=== PATIENT | female | born 1950 | race Two or more races ===

== ENCOUNTER 2016-09-30 22:15 | Emergency (ER) | payer MEDICARE, MEDICAID ==
[2016-09-30 21:19] LABS: BASO % 0.8 % (0-2); BASO ABSOLUTE COUNT 0.1 tho/cmm (0.0-0.2); EOS % 9.6 % (0-7); EOSINOPHIL ABSOLUTE COUNT 1.1 tho/cmm (0.0-0.7); HCT-HEMATOCRIT 28.7 % (34.0-49.0); IMMATURE GRANULOCYTES ABSOLUTE 0.03 tho/cmm (0-0.03); IMMATURE GRANULOCYTES PERCENT 0.3 % (0-0.3); LYMPH % 16.5 % (20-45); LYMPH ABSOLUTE COUNT 1.8 tho/cmm (0.8-4.5); MCH (MEAN CORPUSCULAR HGB) 29.8 pg (28.0-32.0); MCHC MEAN CORPUSCULAR HGB CONC 31.4 % (32.0-36.0); MEAN PLATELET VOLUME 9.6 cmc (9.4-12.4); MONO % 7.6 % (0-12); MONOCYTE ABSOLUTE COUNT 0.9 tho/cmm (0.0-1.2); NEUTROPHIL ABSOLUTE COUNT 7.3 tho/cmm (1.6-8.0); NEUTROPHIL-AUTOMATED 7.3 tho/cmm (1.6-8.0); NEUTROPHILS % 65.2 % (40-80); PLATELET COUNT 264 tho/cmm (150-450); RED BLOOD COUNT 3.02 mil/cmm (4.00-5.20); RED CELL DISTRIBUTION WIDTH 15.7 % (12.4-16.4); WHITE BLOOD COUNT 11.1 tho/cmm (4.0-10.0)
[2016-09-30 21:22] LABS: ANION GAP 13 mmol/L (0-20); BLOOD UREA NITROGEN 48 mg/dl (6-24); CALCIUM 8.3 mg/dl (8.5-10.5); CARBON DIOXIDE-VENOUS 30 mmol/L (22-32); CHLORIDE 100 mmol/l (96-110); GLUCOSE 118 mg/dL (70-110); POTASSIUM 4.8 mmol/L (3.7-5.1); SODIUM 138 mmol/L (135-145); eGFR VALUE FOR BLACK 8 mL/Min
[~2016-09-30 22:15] MED LIST: ASPIRIN EC81 MG PO; ATIVAN0.5 M1 PO; BALANCE B-1001 EAC1 PO; BRILINTA90 M1 PO; CALCIUM ACETAT667 M3 PO; CELEXA20 M2 PO; COREG25 M1 PO; COZAAR50 M1 PO; LASIX40 M1 PO; LEVEMIR FL100 UNIT/2 SC; LYRICA50 MG/CAP PO; MIRALAX17 G2 PO; NEURONTIN600 M1 PO; NORVASC5 M2 PO; NOVOLOG100 UNITS/ SC; OMEPRAZOLE20 M3 PO; PRAMIPEXOLE D0.25 M1 PO; PRAVASTATIN SOD20 M1 PO; TRAZODONE HCL50 M1 PO; TYLENOL EXTRA500 M1 PO; ULTRAM50 M1 PO; [UNRECOGNIZED DRUG - OTHER] PO
== END 2016-09-30 22:39 ==
LOC: EDMED 22:15
PROVIDERS: Emergency Medicine
DX: S09.90XA Unspecified injury of head, initial encounter (principal); W05.0XXA Fall from non-moving wheelchair, initial encounter; E11.22 Type 2 diabetes mellitus with diabetic chronic kidney disease; N18.9 Chronic kidney disease, unspecified; I73.9 Peripheral vascular disease, unspecified; Z99.2 Dependence on renal dialysis; Z79.02 Long term (current) use of antithrombotics/antiplatelets; Z79.4 Long term (current) use of insulin; Z79.899 Other long term (current) drug therapy

== ENCOUNTER 2016-10-01 19:45 | Inpatient (IN) | payer MEDICARE, MEDICAID ==
[2016-10-01 20:55] LABS: BASO % 0.3 % (0-2); EOS % 7.6 % (0-7); EOSINOPHIL ABSOLUTE COUNT 1.1 tho/cmm (0.0-0.7); HCT-HEMATOCRIT 28.3 % (34.0-49.0); HGB-HEMOGLOBIN 8.9 gm/dl (12.0-15.5); IMMATURE GRANULOCYTES ABSOLUTE 0.03 tho/cmm (0-0.03); IMMATURE GRANULOCYTES PERCENT 0.2 % (0-0.3); LYMPH % 12.6 % (20-45); LYMPH ABSOLUTE COUNT 1.7 tho/cmm (0.8-4.5); MCH (MEAN CORPUSCULAR HGB) 29.8 pg (28.0-32.0); MCHC MEAN CORPUSCULAR HGB CONC 31.4 % (32.0-36.0); MCV (MEAN CELL VOLUME) 94.6 fl (82.0-96.0); MEAN PLATELET VOLUME 9.9 cmc (9.4-12.4); MONO % 5.5 % (0-12); MONOCYTE ABSOLUTE COUNT 0.8 tho/cmm (0.0-1.2); NEUTROPHIL ABSOLUTE COUNT 10.2 tho/cmm (1.6-8.0); NEUTROPHIL-AUTOMATED 10.2 tho/cmm (1.6-8.0); NEUTROPHILS % 73.8 % (40-80); PLATELET COUNT 289 tho/cmm (150-450); RED BLOOD COUNT 2.99 mil/cmm (4.00-5.20); RED CELL DISTRIBUTION WIDTH 15.5 % (12.4-16.4); WHITE BLOOD COUNT 13.8 tho/cmm (4.0-10.0)
[2016-10-01 21:05] LABS: ALB/GLOB RATIO 0.5 (0.8-2.0); ALBUMIN 3.2 g/dl (3.5-5.0); ALKALINE PHOSPHATASE 123 U/L (33-138); ALT/SGPT 10 U/L (12-78); ANION GAP 15 mmol/L (0-20); AST/SGOT 13 U/L (10-40); BILIRUBIN,TOTAL 0.4 mg/dl (0-1.5); BLOOD UREA NITROGEN 59 mg/dl (6-24); CALCIUM 8.6 mg/dl (8.5-10.5); CARBON DIOXIDE-VENOUS 28 mmol/L (22-32); CHLORIDE 99 mmol/l (96-110); CREATININE 6.91 mg/dl (0.50-1.10); GLUCOSE 119 mg/dL (70-110); SODIUM 135 mmol/L (135-145); eGFR VALUE FOR BLACK 7 mL/Min
[2016-10-01 21:11] LABS: POTASSIUM 6.7 mmol/L (3.7-5.1)
[2016-10-01 21:27] LABS: PROCALCITONIN 0.26 ng/ml (0.05-0.09)
[2016-10-01 21:45] LABS: URINE BILIRUBIN NEGATIVE (NEG); URINE BLOOD LARGE (NEG); URINE GLUCOSE (UA) NEGATIVE (NEG); URINE KETONE NEGATIVE (NEG); URINE LEUKOCYTE ESTERASE POSITIVE (NEG); URINE NITRITE NEGATIVE (NEG); URINE PROTEIN MODERATE (NEG)
[2016-10-01 21:54] LABS: URINE APPEARANCE CLOUDY; URINE COLOR YELLOW
[2016-10-01 22:01] LABS: URINE AMORPHOUS 1+; URINE BACTERIA 1+; URINE RBC 0 /[HPF] (0-5); URINE WBC FULL FIELD /[HPF] (0-5)
[2016-10-02 09:11] LABS: BASO % 0.4 % (0-2); EOS % 6.9 % (0-7); EOSINOPHIL ABSOLUTE COUNT 0.7 tho/cmm (0.0-0.7); HCT-HEMATOCRIT 26.7 % (34.0-49.0); HGB-HEMOGLOBIN 8.4 gm/dl (12.0-15.5); IMMATURE GRANULOCYTES ABSOLUTE 0.01 tho/cmm (0-0.03); IMMATURE GRANULOCYTES PERCENT 0.1 % (0-0.3); LYMPH % 12.2 % (20-45); LYMPH ABSOLUTE COUNT 1.3 tho/cmm (0.8-4.5); MCH (MEAN CORPUSCULAR HGB) 29.5 pg (28.0-32.0); MCHC MEAN CORPUSCULAR HGB CONC 31.5 % (32.0-36.0); MCV (MEAN CELL VOLUME) 93.7 fl (82.0-96.0); MEAN PLATELET VOLUME 9.9 cmc (9.4-12.4); MONO % 7.5 % (0-12); MONOCYTE ABSOLUTE COUNT 0.8 tho/cmm (0.0-1.2); NEUTROPHIL ABSOLUTE COUNT 7.8 tho/cmm (1.6-8.0); NEUTROPHIL-AUTOMATED 7.8 tho/cmm (1.6-8.0); NEUTROPHILS % 72.9 % (40-80); PLATELET COUNT 271 tho/cmm (150-450); RED BLOOD COUNT 2.85 mil/cmm (4.00-5.20); RED CELL DISTRIBUTION WIDTH 15.3 % (12.4-16.4); WHITE BLOOD COUNT 10.8 tho/cmm (4.0-10.0)
[2016-10-02 09:34] LABS: ALB/GLOB RATIO 0.5 (0.8-2.0); ALBUMIN 2.8 g/dl (3.5-5.0); ALKALINE PHOSPHATASE 112 U/L (33-138); ALT/SGPT 12 U/L (12-78); AST/SGOT 18 U/L (10-40); BILIRUBIN,TOTAL 0.5 mg/dl (0-1.5); BLOOD UREA NITROGEN 35 mg/dl (6-24); CALCIUM 8.3 mg/dl (8.5-10.5); CARBON DIOXIDE-VENOUS 28 mmol/L (22-32); CHLORIDE 99 mmol/l (96-110); GLUCOSE 96 mg/dL (70-110); MAGNESIUM 2.1 mg/dl (1.3-2.6); PHOSPHOROUS 3.1 mg/dl (2.5-4.9); SODIUM 138 mmol/L (135-145); eGFR VALUE FOR BLACK 11 mL/Min
[2016-10-02 09:36] LABS: ANION GAP 16 mmol/L (0-20); CREATININE 4.66 mg/dl (0.50-1.10); POTASSIUM 4.5 mmol/L (3.7-5.1)
[2016-10-03 06:10] LABS: ANION GAP 12 mmol/L (0-20); BLOOD UREA NITROGEN 20 mg/dl (6-24); CALCIUM 8.9 mg/dl (8.5-10.5); CARBON DIOXIDE-VENOUS 31 mmol/L (22-32); CHLORIDE 97 mmol/l (96-110); CREATININE 3.48 mg/dl (0.50-1.10); GLUCOSE 86 mg/dL (70-110); MAGNESIUM 1.9 mg/dl (1.3-2.6); PHOSPHOROUS 3.1 mg/dl (2.5-4.9); POTASSIUM 3.4 mmol/L (3.7-5.1); SODIUM 137 mmol/L (135-145); eGFR VALUE FOR BLACK 15 mL/Min
[2016-10-04 07:28] LABS: ANION GAP 17 mmol/L (0-20); BLOOD UREA NITROGEN 33 mg/dl (6-24); CALCIUM 8.7 mg/dl (8.5-10.5); CARBON DIOXIDE-VENOUS 27 mmol/L (22-32); CHLORIDE 102 mmol/l (96-110); CREATININE 5.37 mg/dl (0.50-1.10); POTASSIUM 5.9 mmol/L (3.7-5.1); SODIUM 140 mmol/L (135-145); eGFR VALUE FOR BLACK 9 mL/Min
[2016-10-04 07:31] LABS: GLUCOSE 43 mg/dL (70-110)
[2016-10-05 06:13] LABS: BASO % 0.6 % (0-2); BASO ABSOLUTE COUNT 0.1 tho/cmm (0.0-0.2); EOS % 8.4 % (0-7); EOSINOPHIL ABSOLUTE COUNT 0.8 tho/cmm (0.0-0.7); HCT-HEMATOCRIT 26.4 % (34.0-49.0); HGB-HEMOGLOBIN 8.4 gm/dl (12.0-15.5); IMMATURE GRANULOCYTES ABSOLUTE 0.02 tho/cmm (0-0.03); IMMATURE GRANULOCYTES PERCENT 0.2 % (0-0.3); LYMPH % 22.1 % (20-45); LYMPH ABSOLUTE COUNT 2.1 tho/cmm (0.8-4.5); MCH (MEAN CORPUSCULAR HGB) 29.4 pg (28.0-32.0); MCHC MEAN CORPUSCULAR HGB CONC 31.8 % (32.0-36.0); MCV (MEAN CELL VOLUME) 92.3 fl (82.0-96.0); MEAN PLATELET VOLUME 9.8 cmc (9.4-12.4); MONO % 9.5 % (0-12); MONOCYTE ABSOLUTE COUNT 0.9 tho/cmm (0.0-1.2); NEUTROPHIL ABSOLUTE COUNT 5.6 tho/cmm (1.6-8.0); NEUTROPHIL-AUTOMATED 5.6 tho/cmm (1.6-8.0); NEUTROPHILS % 59.2 % (40-80); PLATELET COUNT 267 tho/cmm (150-450); RED BLOOD COUNT 2.86 mil/cmm (4.00-5.20); RED CELL DISTRIBUTION WIDTH 14.7 % (12.4-16.4); WHITE BLOOD COUNT 9.4 tho/cmm (4.0-10.0)
[2016-10-05 06:22] LABS: ALBUMIN 2.7 g/dl (3.5-5.0); BLOOD UREA NITROGEN 10 mg/dl (6-24); CALCIUM 9.1 mg/dl (8.5-10.5); CARBON DIOXIDE-VENOUS 26 mmol/L (22-32); CHLORIDE 101 mmol/l (96-110); PHOSPHOROUS 1.6 mg/dl (2.5-4.9); SODIUM 137 mmol/L (135-145); eGFR VALUE FOR BLACK 16 mL/Min
[2016-10-05 06:28] LABS: ANION GAP 13 mmol/L (0-20); CREATININE 3.27 mg/dl (0.50-1.10); GLUCOSE 86 mg/dL (70-110); POTASSIUM 2.8 mmol/L (3.7-5.1)
[2016-10-06 07:15] LABS: ALBUMIN 2.8 g/dl (3.5-5.0); ANION GAP 13 mmol/L (0-20); BLOOD UREA NITROGEN 18 mg/dl (6-24); CALCIUM 8.6 mg/dl (8.5-10.5); CARBON DIOXIDE-VENOUS 25 mmol/L (22-32); CHLORIDE 106 mmol/l (96-110); POTASSIUM 3.6 mmol/L (3.7-5.1); SODIUM 140 mmol/L (135-145)
[2016-10-06 07:16] LABS: CREATININE 4.81 mg/dl (0.50-1.10); GLUCOSE 55 mg/dL (70-110); eGFR VALUE FOR BLACK 10 mL/Min
[2016-10-06 07:24] LABS: IRON 49 ug/dl (37-170); IRON BINDING CAPACITY 144 ug/dl (250-450)
[2016-10-06 07:44] LABS: FERRITIN 2666 ng/ml (8-250)
[2016-10-06] MEDS ORDERED: VIBRAMYCIN100 M1 PO (16:29)
[2016-10-06] MEDS ORDERED: VANCOCIN HCL125 MG PO (16:36)
[2016-10-06] MEDS ORDERED: VANCOMYCIN HCL125 M1 PO (16:38)
[2016-10-06] MEDS ORDERED: LYRICA50 MG/CAP PO (16:50)
== END 2016-10-06 17:32 | DRG 193 ==
LOC: EDMED 19:45 → EMR2 10-02 00:43 → PCUA 10-02 01:46
PROVIDERS: Emergency Medicine; Family Medicine; Internal Medicine; Internal Medicine Nephrology; ADMIT Hospitalist
PROC: 05HY33Z Insertion of Infusion Device into Upper Vein, Percutaneous Approach (ICD-10-PCS; principal; 2016-10-02)
PROC: 5A1D60Z (ICD-10-PCS; principal; 2016-10-02)
DX: J18.9 Pneumonia, unspecified organism (principal); N18.6 End stage renal disease; G92 Toxic encephalopathy; I96 Gangrene, not elsewhere classified; A04.7 Enterocolitis due to Clostridium difficile; N25.81 Secondary hyperparathyroidism of renal origin; E11.22 Type 2 diabetes mellitus with diabetic chronic kidney disease; I12.0 Hypertensive chronic kidney disease with stage 5 chronic kidney disease or end stage renal disease; N39.0 Urinary tract infection, site not specified; Z99.2 Dependence on renal dialysis; D63.1 Anemia in chronic kidney disease; F32.9 Major depressive disorder, single episode, unspecified; I25.10 Atherosclerotic heart disease of native coronary artery without angina pectoris; I25.2 Old myocardial infarction; T42.6X5A Adverse effect of other antiepileptic and sedative-hypnotic drugs, initial encounter; Z91.19 Patient's noncompliance with other medical treatment and regimen; E11.649 Type 2 diabetes mellitus with hypoglycemia without coma
CPT/HCPCS: C1751; J0885; J1644; J1815; J2543; J3370; J7050; P9612

== ENCOUNTER 2016-10-10 08:12 | Day surgery (SDC) | payer MEDICARE, MEDICAID ==
[~2016-10-10 08:12] MED LIST changes: +VANCOCIN HCL125 MG PO; +VANCOMYCIN HCL125 M1 PO; +VIBRAMYCIN100 M1 PO
[2016-10-10 09:37] LABS: BASO % 0.8 % (0-2); BASO ABSOLUTE COUNT 0.1 tho/cmm (0.0-0.2); EOS % 7.2 % (0-7); EOSINOPHIL ABSOLUTE COUNT 0.8 tho/cmm (0.0-0.7); HCT-HEMATOCRIT 33.1 % (34.0-49.0); HGB-HEMOGLOBIN 10.3 gm/dl (12.0-15.5); IMMATURE GRANULOCYTES ABSOLUTE 0.03 tho/cmm (0-0.03); IMMATURE GRANULOCYTES PERCENT 0.3 % (0-0.3); LYMPH % 14.1 % (20-45); LYMPH ABSOLUTE COUNT 1.5 tho/cmm (0.8-4.5); MCH (MEAN CORPUSCULAR HGB) 29.9 pg (28.0-32.0); MCHC MEAN CORPUSCULAR HGB CONC 31.1 % (32.0-36.0); MCV (MEAN CELL VOLUME) 95.9 fl (82.0-96.0); MEAN PLATELET VOLUME 10.2 cmc (9.4-12.4); MONO % 10.9 % (0-12); MONOCYTE ABSOLUTE COUNT 1.1 tho/cmm (0.0-1.2); NEUTROPHILS % 66.7 % (40-80); PLATELET COUNT 250 tho/cmm (150-450); RED BLOOD COUNT 3.45 mil/cmm (4.00-5.20); RED CELL DISTRIBUTION WIDTH 16.8 % (12.4-16.4); WHITE BLOOD COUNT 10.5 tho/cmm (4.0-10.0)
[2016-10-10 09:42] LABS: INR 1.1 INR (0.9-1.1); PROTHROMBIN TIME 12.8 SECONDS (9.0-13.6)
[2016-10-10 09:49] LABS: ANION GAP 12 mmol/L (0-20); BLOOD UREA NITROGEN 21 mg/dl (6-24); CARBON DIOXIDE-VENOUS 31 mmol/L (22-32); CHLORIDE 100 mmol/l (96-110); CREATININE 3.93 mg/dl (0.50-1.10); GLUCOSE 74 mg/dL (70-110); POTASSIUM 4.1 mmol/L (3.7-5.1); SODIUM 139 mmol/L (135-145); eGFR VALUE FOR BLACK 13 mL/Min
== END 2016-10-10 14:40 ==
LOC: RADSP 08:12 → SHSC 08:13
PROVIDERS: Radiology Diagnostic Radiology
PROC: B51W1ZZ Fluoroscopy of Dialysis Shunt/Fistula using Low Osmolar Contrast (ICD-10-PCS; principal; 2016-10-10)
PROC: 057C3ZZ Dilation of Left Basilic Vein, Percutaneous Approach (ICD-10-PCS; 2016-10-10)
DX: T82.858A Stenosis of other vascular prosthetic devices, implants and grafts, initial encounter (principal); I12.0 Hypertensive chronic kidney disease with stage 5 chronic kidney disease or end stage renal disease; E11.22 Type 2 diabetes mellitus with diabetic chronic kidney disease; N18.6 End stage renal disease; E78.00 Pure hypercholesterolemia, unspecified; D63.1 Anemia in chronic kidney disease; Z79.2 Long term (current) use of antibiotics; Z79.4 Long term (current) use of insulin; Z79.899 Other long term (current) drug therapy; Z88.2 Allergy status to sulfonamides; Z87.891 Personal history of nicotine dependence; Z98.890 Other specified postprocedural states; Z99.2 Dependence on renal dialysis
CPT/HCPCS: C1725; C1769; C1894; J1644; J2250; J3010; Q9967